=== PATIENT | male | born 2000 | race Two or more races ===

== ENCOUNTER 2021-03-07 12:16 | Emergency (ER) | payer SELFPAY ==
[~2021-03-07] VITALS: Ht 193 cm; Wt 111.1 kg
[2021-03-07 15:40] VITALS: BP 11/70
== END 2021-03-07 15:40 | disposition home or self-care (01) ==
LOC: ER 12:16
DX: R07.89 Other chest pain (principal)
CPT/HCPCS: 71046; 93005